=== PATIENT | male | born 1960 | race Caucasian/White ===

== ENCOUNTER 2018-05-15 20:49 | Emergency (ER) | payer OTHER, SELFPAY ==
[2018-05-15 20:55] VITALS: BP 161/91; PULSE 56; RESP 17; TEMP 36.9; O2SAT 97
--- NOTE | 2018-05-15 22:03 | ED.HA ---
HPI - Headache General Chief Complaint: Headache Stated Complaint: HEADACHE Time Seen by Provider: 05/15/18 21:53 Source: patient and RN notes reviewed Mode of arrival: ambulatory Limitations: no limitations History of Present Illness HPI Narrative: Patient is a 58-year-old male who presents with a left-sided headache. He feels like he may have an infection in his tooth. He woke up this evening getting ready for work when he noticed pain in his left juice and by his left eye. He took some Tylenol and Excedrin which has seemed to take away the pain. He no has no fever no facial swelling. He does have a history of dental abscesses. Related Data Previous Rx's Medication Instructions Recorded amoxicillin 500 mg PO TID 7 Days #21 cap 05/15/18 Review of Systems Review of Systems All systems reviewed & are unremarkable except as noted in HPI and below Constitutional Denies chills, Denies fever(s), Reports headache(s), Denies lethargy and Denies weakness Eyes Denies change in vision, Denies eye discharge, Denies irritation and Denies loss of vision ENT Ears, Nose, Mouth, and Throat: Reports dental pain and Reports headache(s) Cardiovascular Denies chest pain, Denies irregular heart rhythm, Denies lightheadedness, Denies palpitations, Denies dyspnea, Denies dyspnea on exertion and Denies orthopnea Respiratory Denies cough, Denies dyspnea, Denies dyspnea on exertion and Denies wheezing Gastrointestinal Gastrointestinal: Denies abdominal pain, Denies change in bowel habits, Denies diarrhea, Denies nausea and Denies vomiting Integumentary/Breasts Denies pruritus, Denies erythema, Denies rash and Denies wounds Neurologic Reports headache(s), Denies loss of vision and Denies weakness Endocrine Denies palpitations Allergic/Immunologic Denies wheezing PFSH Medical History Hypertension (Acute) Social History Smoking Status: Current every day smoker alcohol intake: never substance use type: does not use Exam Initial Vital Signs Initial Vital Signs: Vital Signs Temperature 98.5 F 05/15/18 20:55 Pulse Rate 56 L 05/15/18 20:55 Respiratory Rate 17 05/15/18 20:55 Blood Pressure 161/91 H 05/15/18 20:55 Pulse Oximetry 97 05/15/18 20:55 GENERAL: Well-appearing, well-nourished and in no acute distress. HEENT: Head atraumatic, no pain over temporal artery EOMI, pupils reactive, face symmetric, no dental abscess appreciated, pain left upper side no facial swelling NECK: Supple no meningeal sign CARDIOVASCULAR: Regular rate and rhythm without murmurs, rubs or gallops. RESPIRATORY: Breath sounds equal bilaterally, no wheezes rales or rhonchi. ABDOMEN: Soft, nontender. Normoactive bowel sounds all 4 quadrants. No guarding or rebound. EXTREMITIES: Normal range of motion, no clubbing or edema. Neurovascularly intact NEUROLOGICAL: Alert and oriented x4.Normal gait and speech. Cranial nerves II through XII grossly intact. Good [id number], good [id number], strength equal bilaterally, no dysarthria or aphasia, sensation in tact to soft touch bilaterally, no visual changes, no facial droop SKIN: Warm, dry, no laceration, no petechiae, no rashes or lesions. Course Orders Ordered: Discontinued Medications Amoxicillin ( Trimox 250mg Prepack) [facility] Stop: 05/15/18 22:02 Last Admin: 05/15/18 22:19 Dose: 1 bottle Vital Signs - 8 hr 05/15/18 20:55 Temperature 98.5 F Pulse Rate 56 L Respiratory Rate 17 Blood Pressure 161/91 H Pulse Oximetry 97 MDM - Headache MDM Narrative Medical decision making narrative: Patient is stable without any focal deficits. His pain is improved after his home medication. He has no facial swelling or sign of dental abscess. But he does feel like his headache is coming from a tooth infection. Discharge Plan Departure Patient Disposition: Home, Self-Care Clinical Impression: Dental infection, Headache Discharge Date/Time: 05/15/18 22:23 Interventions: ED Discharge Assessment Last Done: 05/15/18 22:22 Instructions: DI for Dental Pain Activity Restrictions/Additional Instructions: *You have been diagnosed with dental infection, headache *Continue to take medications as directed Amoxicillin 500 mg 3 times a day for 7 days *Follow up with your primary care provider in 2-3 days *Return to ER if you should have facial swelling, persistent ongoing headache, weakness, visual change or any new, worsening or concerning symptoms Prescriptions: New amoxicillin 500 mg capsule 500 mg PO TID 7 Days Qty: 21 RF: 0
[2018-05-15] MEDS: AMOXICILLIN 250 MG PREPACK 1 BOTTLE MISC (22:19)
== END 2018-05-15 22:23 | disposition home or self-care (01) ==
PROVIDERS: Emergency Provider Emergency Medicine
DX: K04.7 Periapical abscess without sinus (principal); R51 Headache
CPT/HCPCS: 99282; 99283